=== PATIENT | female | born 1995 | race Caucasian/White ===

== ENCOUNTER 2021-03-22 08:24 | Emergency (ER) | payer MEDICAID ==
[~2021-03-22] VITALS: Ht 170.2 cm; Wt 136.4 kg
[2021-03-22 08:55] VITALS: BP 132/67; TEMP 98.2
[2021-03-22] MEDS ORDERED: TOPAMAX 100MG100 M1 PO (09:01)
[2021-03-22] MEDS ORDERED: ZYRTEC 10MG10 MG PO (09:02)
[2021-03-22 10:15] VITALS: PULSE 85
== END 2021-03-22 10:15 | disposition home or self-care (01) ==
LOC: COL.ER 08:24
DX: U07.1 COVID-19 (principal)